=== PATIENT | male | born 1970 | race Caucasian/White ===

== ENCOUNTER 2016-12-19 08:38 | Inpatient (IN) | payer MEDICAID ==
[2016-12-19] MEDS ORDERED: Maalox 30 mL Cup PO PRN (11:51)
[2016-12-19] MEDS ORDERED: Magnesium Hydroxide (MOM) 30 mL UDC PO PRN (11:51)
[2016-12-19] MEDS ORDERED: Hydrocodone/APAP 5mg/325mg Tab PO PRN (11:51)
[2016-12-19] MEDS: Hydrocodone/APAP 10 mg/325 mg Tab PO PRN ×2 (18:01→23:51)
--- NOTE | 2016-12-19 20:31 | Consultation ---
DATE OF CONSULTATION: 12/19/2016 CARDIOLOGY CONSULT REFERRING PHYSICIAN: Dr. Layla Troncoso. HISTORY OF PRESENT ILLNESS: This patient is being admitted by Dr. Layla Troncoso on transfer from [facility] as the patient is coming with the chest pain. The patient was admitted at Emergency Room at [facility] complaining of chest pain and it started when he was told by the police that he was going to go to senior care. He states that there is pressure which is like heavy feeling and it is localized in the center of chest area and no radiation or no association with anything, does not increase or decrease with anything. It is just pure pain and does not feel localized. PAST MEDICAL HISTORY: History of multiple problems including atypical chest pain, hypertension, migraine, degenerative disorder in the lumbar disk area, low back pain, and opioid dependence. He has been also using amphetamine. PERSONAL HISTORY: He uses amphetamine everyday and last one was on 12/18/2016 at 12:30 p.m. He also drinks alcohol and denies of any other drug abuse or smoking. He is homeless. ALLERGIES: TORADOL causes nausea. FAMILY HISTORY: Nothing contributory from cardiac point of view. PHYSICAL EXAMINATION: GENERAL: The patient is a 46-year-old male, who is lethargic and is sleepy, but responding properly. HEENT: Normal. NECK: Supple. JVP is flat. No lymphadenopathy. CHEST: Good bilaterally. No chest wall tenderness. LUNGS: Clear. CARDIOVASCULAR SYSTEM: PMI not palpable. Heart sounds normal. No gallop or murmur is appreciated. ABDOMEN: Normal. EXECUTIVE ADVISOR: Grossly normal. EXTREMITIES: No edema. No cyanosis. No clubbing. Peripheral pulses are equal bilaterally. IMAGING DATA: EKG done showing the normal sinus rhythm with occasional PVCs, biatrial enlargement. LVH by voltage criteria. Intraventricular conduction delay secondary to LVH. Inversion of the T-wave in the V5 and V6. Having frequent PVCs. LAB WORK: Showing that his troponin is 0.03 and other lab is pending. At [place], his CBC was okay, and other lab here is pending. IMPRESSION: 1. Atypical chest pain. I doubt any cardiac etiology of this most likely psychosomatic because of getting arrest and going to senior care. 2. Drug abuse with methamphetamine. 3. Cardiac dysrhythmia that is PVC and per history by the patient, he has had history of atrial fibrillation and cardiomyopathy secondary to drug abuse. Other medical problems as above. PLAN: I agree with present management. Do lab work and do BMP, CBC, drug screen, also do the troponin. Also get the EKG in the morning. Echocardiogram to evaluate LV function and also rule out any vegetation. Other management has been ordered. Further workup and management will be initiated as needed. Thank you very much Dr. Calderon for your kind referral. I will follow along with you during his acute cardiac problem. JOB# [id number] MTDD
[2016-12-19 21:08] VITALS: BP 135/78
[2016-12-20 04:17] LABS: AMPHETAMINE URINE POSITIVE (NEGATIVE); BARBITURATES URINE NEGATIVE (NEGATIVE); METHADONE URINE NEGATIVE (NEGATIVE)
[2016-12-20 05:42] LABS: % BASOPHILS 0.5 % (0.0-2.0); % EOSINOPHILS 4.4 % (0.0-5.0); % LYMPHOCYTES 19.7 % (20.0-50.0); % NEUTROPHILS 68.4 % (40.0-80.0); HEMATOCRIT 41.4 % (39.0-49.0); HEMOGLOBIN 13.2 gm/dL (13.2-17.3); MEAN CELL VOLUME 83.7 fl (80-99); MEAN CORPUSCULAR HEMOGLOBIN 26.8 pg (26.0-30.0); MEAN PLATELET VOLUME 9.3 fl; NEUTROPHILE ABSOLUTE 5.8 Th/cmm (1.8-8.0); PLATELET COUNT 227 Th/cmm (150-400); RED BLOOD COUNT 4.95 Mil/cmm (4.30-5.70); RED CELL DISTRIBUTION WIDTH 15.8 % (11.5-20.0); WHITE BLOOD COUNT 8.5 Th/cmm (4.8-10.8)
--- NOTE | 2016-12-20 05:44 | Admit Criteria Form ---
Admit Criteria Forms - Admit Criteria Diagnosis: SUBSTANCE ABUSE Clinical Indications for Admission to Inpatient Care (Place 'X' for any and all applicable criteria): Admission is indicated due to ANY ONE of the following(1)(2)(3)(4)(5): [ ]I. Delirium due to alcohol or sedative A withdrawal B ( Also use Delirium Criteria as appropriate)1,6,7 [ ]II. Alcohol or sedative withdrawal with high-risk indicator as manifested by ALL of the following1,3,6,7 [ ]a) Signs of withdrawal as indicated by ANY ONE of the following: [ ]i) Heart rate greater than 100 beats per minute [ ]ii) Nausea or vomiting [ ]iii) Other physical signs of alcohol or sedative withdrawal [ ]iv) Tremor [ ](v) Increased perspiration [ ]b) Elevated risk due to a historical or comorbid factor as indicated by ANY ONE of the following: [ ]i) History of delirium due to alcohol or sedative withdrawal [ ]ii) History of repetitive seizures due to alcohol or sedative withdrawal C [ ]iii) Intrinsic seizure disorder (epilepsy) [ ]iv) [ ]v) Comorbid medical condition that can be dangerously destabilized by alcohol or sedative withdrawal (eg, severe cardiac disease) [ ]III. Severe alcohol or sedative withdrawal that is unmanageable at lower level of care, as manifested by ALL of the following1,3,6,7 [ ]a) Marked signs of withdrawal as indicated by ANY ONE of the following: [ ]i) Heart rate greater than 120 beats per minute [ ]ii) Vomiting [ ]iii) Grossly visible tremor [ ]iv) Profuse perspiration [ ]v) Temperature greater than 38.3 degrees C (101 degrees F) [ ]vi) Other marked physical signs of alcohol or sedative withdrawal [ ]b) Signs of withdrawal which require inpatient treatment as indicated by ANY ONE of the following: [ ]i) Inadequate response to pharmacotherapy in emergency department or other appropriate lower level of care [ ]ii) Lower level of care not feasible or appropriate (eg, unavailable or inappropriate to patient condition or treatment history) [ ]IV. Severely complicated opioid withdrawal that requires otqekc-sya-[id number] care as manifested by ALL of the following 1,4,7,11 [ ]a) Vomiting or diarrhea due to opioid withdrawal [ ]b) Marked dehydration or electrolyte abnormality that cannot be corrected (to near normal) in an emergency department or other ambulatory setting (eg, serum K<2.5 mEq/L , serum Na <130 mEq/L [X]V. Acute toxicity or instability from substance use requiring inpatient care (eg, altered mental status, respiratory depression) that has had inadequate response to, or is judged inappropriate for, treatment at lower level of care (eg, emergency department, observation care) [ ]. Other inpatient medical or psychiatric care is needed due to risk or comorbidity as indicated by ALL of the following(18): [ ]a) Treatment is needed because of patient risk due to ANY ONE of the following: [ ]i) Medical condition (eg, severe cardiac disease) that requires 24-hour monitoring and treatment due to danger of destabilization by alcohol or sedative withdrawal is present [ ]ii) Imminent danger to self is present due to ANY ONE of the following(19)(20)(21): [ ]1) Imminent risk for recurrence of Suicide attempt or act of serious Harm to self is present as indicated by ALL of the following: [ ]A. There has been very recent Suicide attempt or deliberate act of serious Harm to self. [ ]B. There has not been Sufficient relief of the factors that precipitated the attempt or act. [ ]2) Current plan for suicide or serious Harm to self is present. [ ]3) Command auditory hallucinations for suicide or serious Harm to self are present. [ ]4) Patient has persistent Thoughts of suicide or serious Harm to self that cannot be adequately monitored at lower level of care due to ANY ONE of the following[E]: [ ]A. Insufficient behavioral care is available to meet patient needs (such as required provider or lower level facility is not available). [ ]B. Patient characteristics such as high impulsivity or unreliability are present. [ ]C. Environment does not support recovery. [ ]D. Ready access to lethal means [ ]iii) Imminent danger to others is present due to ANY ONE of the following(19)(23)(24): [ ]1) Imminent risk for recurrence of attempt to seriously Harm another is present as indicated by ALL of the following: [ ]A. There has been very recent attempt to seriously Harm another. [ ]B. There has not been Sufficient relief of factors that precipitated the attempt or act. [ ]2) Current plan for homicide or serious Harm to another is present. [ ]3) Command auditory hallucinations or paranoid delusions contributing to risk for homicide or serious Harm to another are present. [ ]4) Patient has persistent thoughts of homicide or serious Harm to another that cannot be adequately monitored at lower level of care because of ANY ONE of the following[E]: [ ]A. Insufficient behavioral care is available to meet patient needs (such as required provider or lower level facility is not available). [ ]B. High impulsivity or unreliability is present. [ ]C. Environment does not support recovery. [ ]D. Ready access to lethal means [ ]iv) Severe dysfunction in daily living related to substance use disorder as indicated by ANY ONE of the following(33): [ ]a) Extreme deterioration in social interactions (eg , threatening behaviors with little or no provocation) [ ]b) Complete withdrawal from all social interactions [ ]c) Complete neglect of self-care with associated impairment in physical status [ ]d) Extreme disruption in vegetative function (eg, life-sustaining functions such as eating) [ ]e) Complete inability to maintain any appropriate aspect of personal responsibility in any adult roles (eg, occupational, parental ) [ ]v) Other emotional, behavioral, or cognitive symptoms of sufficient severity to preclude ability to engage in recovery without 24-hour monitoring and treatment are present. [ ]vi) Patient requires monitoring due to substance use in combination with medical, psychiatric, or environmental factors that prevent adequate management at lower level of care as indicated by ALL of the following: [ ]1) Significant substance use effects, medical conditions, or psychiatric comorbidities are present as indicated by ANY ONE of the following [ ]A. Substance toxicity or withdrawal requires medical monitoring. [ ]B. Medical comorbidity requires medical monitoring for destabilization due to alcohol or sedative withdrawal. [ ]C. Emotional, behavioral, or cognitive symptoms of sufficient severity to limit or preclude ability to engage in treatment are present. [ ]2) Conditions, barriers, or environmental factors preventing treatment at lower level of care are present as indicated by ANY ONE of the following: [ ]A. Psychiatric comorbidity or opposition to treatment requires 24-hour setting to ensure adherence with medical treatment or adequate motivating interventions. [ ]B. Severe behavioral problems (eg, escalating relapse behaviors, acute psychiatric or substance use crisis, inability to recognize signs and symptoms of relapse ) require 24-hour setting for relapse prevention.[F] [ ]C. Living environment outside of 24-hour setting prevents recovery (eg, abuse, victimization, patient inability to cope). [ ]b Treatment situation and needs are appropriate for inpatient level ( instead of using lower level of care) as indicated by ANY ONE of the following( 25)(26)(27): [ ]i) Patient is unwilling to participate voluntarily and requires treatment (eg, legal commitment) in involuntary unit.(23) [ ]ii) Voluntary treatment at lower level is not feasible (eg, lower level care unavailable or inappropriate for patient condition). [ ]iii) Physical restraint, seclusion, or other involuntary control is needed (eg, actively violent patient for whom treatment in an involuntary unit is deemed necessary in accord with applicable medical and legal criteria).(23) [ ]iv) [id number] medical or nursing care to address symptoms and initiate interventions is required; specific need is identified. Extended stay beyond goal length of stay may be needed for: [ ]a) Onset of delirium [ ]b) Recurrent seizures [ ]c) Persistent severe alcohol or sedative withdrawal [ ]d) Persistent dangerous behavior The original [employer] content created by [employer] has been revised. The portions of the content which have been revised are identified through the use of italic text or in bold, and [facility] has neither reviewed nor approved the modified material. All other unmodified content is copyright [employer]. Please see references footnoted in the original [employer] edition 2016
[2016-12-20 07:48] LABS: BUN - UREA NITROGEN 25 mg/dL (7-25); BUN/CREATININE RATIO 19.2; CALCIUM SERUM 8.4 mg/dL (8.6-10.3); CHLORIDE 107 mEq/L (98-107); CREATININE - SERUM 1.3 mg/dL (0.7-1.3); GLUCOSE 107 mg/dL (70-105); SODIUM SERUM 136 mEq/L (136-145)
[2016-12-20] MEDS: Hydrocodone/APAP 10 mg/325 mg Tab PO PRN (08:37)
--- NOTE | 2016-12-20 16:43 | History & Physical ---
ADMIT DATE: 12/19/2016 CHIEF COMPLAINT: Chest pain. HISTORY OF PRESENT ILLNESS: The patient is a 46-year-old male who initially presented to ER at [facility]. The patient was brought in by paramedics for chest pain from police custody. The pain is present since the patient was told by the police that he is going to prison. The patient's pain is pressure like. The pain is not radiating. The patient admitted to recent methamphetamine use. He said he has used around 15 hours prior to arrival to the ER. PAST MEDICAL HISTORY: Lumbar disk degeneration, chronic low back pain, atypical chest pain, hypertension, migraine, anal fistula, chest wall pain, opioid dependence, arthralgia of shoulder, impaired fasting glucose, hyperphosphatemia, pilonidal cyst, obesity, arachnoid cyst, intoxicated behavior. PAST SURGICAL HISTORY: Anal fistula repair, sigmoidoscopy, I and D of pilonidal cyst. ALLERGIES: TORADOL. SOCIAL HISTORY: History of tobacco use in the past. Denies alcohol use. Positive methamphetamine use. FAMILY HISTORY: Positive for diabetes, coronary artery disease, and colon cancer. REVIEW OF SYSTEMS: See history of present illness. PHYSICAL EXAMINATION: GENERAL: The patient is awake, alert, nontoxic in appearance. HEENT: Normocephalic, atraumatic. Extraocular movements intact. Pupils equal and reactive to light. Oropharynx clear. NECK: Supple, no thyromegaly. No lymphadenopathy. CARDIOVASCULAR: S1, S2. No rubs, murmurs, or gallop. RESPIRATORY: Clear. No wheezes or rhonchi. GASTROINTESTINAL: Soft, nontender, nondistended. Positive bowel sounds. GENITOURINARY: No CVA tenderness. No suprapubic tenderness. BACK: No midline tenderness. SKIN: Negative. NEUROLOGIC: Cranial nerves intact. Extraocular movements intact. Sensation intact. Neurovascular is intact. EKG done in the ER was abnormal. IMPRESSION: 1. Chest pain. 2. Rule out acute coronary syndrome. 3. Lumbar disk degeneration. 4. Chronic low back pain. 5. Elevated blood pressure diagnosed by hypertension. 6. Migraine. 7. Opioid dependence. 8. Shoulder arthralgia. 9. Impaired fasting glucose. 10. Obesity. 11. Intoxicated behavior. PLAN: The patient admitted to telemetry unit at [facility]. Cardiology consultation with Dr. Scarlett Troncoso. We will obtain further labs and consultation as needed. JOB# [id number] DOROTHY
--- NOTE | 2017-01-11 14:46 | Discharge Summary ---
General Discharge Summary - Discharge Summary Admitting Diagnosis: see h&p Patient Problems: All Active Problems RIGHT ARM PAIN (Acute 10/04/13) Discharge Diagnosis: see last pn Laboratory Findings: Laboratory Tests 12/19/16 12/19/16 12/20/16 12:30 20:00 02:30 WBC RBC Hgb Hct MCV MCH MCHC Differential RDW Plt Count MPV Neutrophils % Lymphocytes % Monocytes % Eosinophils % Basophils % Sodium Potassium Chloride Carbon Dioxide Anion Gap BUN Creatinine Est GFR ( Amer) Est GFR (Non-Af Amer) BUN/Creatinine Ratio Glucose Calcium Troponin I 0.03 0.03 Urine Opiates Screen POSITIVE H Urine Methadone Screen NEGATIVE Ur Barbiturates Screen NEGATIVE Ur Tricyclics Screen NEGATIVE Ur Phencyclidine Scrn NEGATIVE Amphetamines Screen POSITIVE H U Methamphetamines Scrn POSITIVE H U Benzodiazepines Scrn POSITIVE H U Cocaine Metab Screen NEGATIVE U Cannabinoids Screen POSITIVE H 12/20/16 12/20/16 12/20/16 05:35 05:35 05:39 WBC 8.5 RBC 4.95 Hgb 13.2 Hct 41.4 MCV 83.7 MCH 26.8 MCHC Differential 32.0 RDW 15.8 Plt Count 227 MPV 9.3 Neutrophils % 68.4 Lymphocytes % 19.7 L Monocytes % 7.0 Eosinophils % 4.4 Basophils % 0.5 Sodium 136 Potassium 4.0 Chloride 107 Carbon Dioxide 22.0 Anion Gap 11.0 BUN 25 Creatinine 1.3 Est GFR ( Amer) > 60.0 Est GFR (Non-Af Amer) > 60.0 BUN/Creatinine Ratio 19.2 Glucose 107 H Calcium 8.4 L Troponin I 0.03 Urine Opiates Screen Urine Methadone Screen Ur Barbiturates Screen Ur Tricyclics Screen Ur Phencyclidine Scrn Amphetamines Screen U Methamphetamines Scrn U Benzodiazepines Scrn U Cocaine Metab Screen U Cannabinoids Screen Hospital Course: telemetry cardiology consult serial cardiac enzymes echo Condition at Discharge: Stable Disposition: PT DISCHARGED HOME Activity: As Tolerated Consults and Follow-Up: LUCIAN ROUSE [Other] not on staff,PCP is [Primary Care Provider] - Instructions: Chest Wall Pain
== END 2016-12-20 14:00 | disposition home or self-care (01) | DRG 203 ==
LOC: TELE 08:38
PROVIDERS: ADMIT Preventive Medicine Preventive Medicine/Occupational Environmental Medicine; ATTEND Preventive Medicine Preventive Medicine/Occupational Environmental Medicine
DX: R07.89 Other chest pain (principal); F11.20 Opioid dependence, uncomplicated; I10 Essential (primary) hypertension; G43.909 Migraine, unspecified, not intractable, without status migrainosus; I48.91 Unspecified atrial fibrillation; M47.816 Spondylosis without myelopathy or radiculopathy, lumbar region; I49.3 Ventricular premature depolarization; G89.29 Other chronic pain; E66.9 Obesity, unspecified; M25.519 Pain in unspecified shoulder; F15.90 Other stimulant use, unspecified, uncomplicated; I45.9 Conduction disorder, unspecified; R73.01 Impaired fasting glucose; Z68.33 Body mass index [BMI] 33.0-33.9, adult; Z59.0 Homelessness; Z88.6 Allergy status to analgesic agent; Z87.891 Personal history of nicotine dependence; Z83.3 Family history of diabetes mellitus; Z82.49 Family history of ischemic heart disease and other diseases of the circulatory system; Z80.0 Family history of malignant neoplasm of digestive organs
CPT/HCPCS: 36415-UA; 80048-TC; 80307; 84484-TC; 85025-TC; 93005